=== PATIENT | male | born 1970 | race Caucasian/White ===

== ENCOUNTER → 2023-10-04 08:14 | Outpatient (REF) | payer OTHER, SELFPAY | LOC: RAD 08:14 | PROVIDERS: ATTENDING PHYSICIAN Internal Medicine Gastroenterology; FAMILY PHYSICIAN Family Medicine | DX: R10.31 Right lower quadrant pain (principal) | CPT/HCPCS: 74178; Q9967 ==

== ENCOUNTER → 2023-12-23 16:51 | Outpatient (REF) | payer OTHER, SELFPAY | LOC: RAD 16:51 | PROVIDERS: ATTENDING PHYSICIAN Family Medicine | DX: M54.50 Low back pain, unspecified (principal); R10.2 Pelvic and perineal pain | CPT/HCPCS: 72110; 73522 ==

== ENCOUNTER 2024-01-12 12:53 | Outpatient (RCR) | payer OTHER, SELFPAY | END 2024-01-12 23:59 | disposition home or self-care (01) | LOC: RPT 12:53 | PROVIDERS: ATTENDING PHYSICIAN Family Medicine | DX: M54.50 Low back pain, unspecified (principal); Z73.6 Limitation of activities due to disability | CPT/HCPCS: 97010; 97110; 97112; 97162; 97530 ==

== ENCOUNTER → 2024-08-21 09:00 | Outpatient (REF) | payer OTHER, SELFPAY | LOC: RAD 09:00 | PROVIDERS: ATTENDING PHYSICIAN Physician Assistant; FAMILY PHYSICIAN Family Medicine | DX: R10.32 Left lower quadrant pain (principal) | CPT/HCPCS: 74177; Q9967 ==

== ENCOUNTER → 2024-10-23 11:00 | Outpatient (REF) | payer OTHER, SELFPAY | LOC: HWRAD 11:00 | PROVIDERS: ATTENDING PHYSICIAN Physician Assistant | DX: R10.31 Right lower quadrant pain (principal) | CPT/HCPCS: 76870; 76882; 93976 ==

== ENCOUNTER → 2025-03-07 15:27 | Outpatient (REF) | payer OTHER, SELFPAY | LOC: RAD 15:27 | PROVIDERS: ATTENDING PHYSICIAN Family Medicine | DX: R22.1 Localized swelling, mass and lump, neck (principal); Z72.0 Tobacco use | CPT/HCPCS: 70491; Q9967 ==